=== PATIENT | female | born 1990 | race Caucasian/White ===

== ENCOUNTER 2016-11-20 10:59 | Inpatient (IN) ==
[2016-11-20] MEDS ORDERED: METHYLERGONOVINE 0.2 MG/ML INJECTION IM PRN ×2 (11:26→11:54)
[2016-11-20] MEDS ORDERED: ACETAMINOPHEN 500 MG TABLET PO PRN ×3 (11:26→16:43)
[2016-11-20] MEDS ORDERED: MAG-AL + SIM ORAL LIQUID 30ml PO PRN ×3 (11:26→16:43)
[2016-11-20] MEDS ORDERED: CALCIUM CARBONATE Chewable 500mg TABLET PO PRN ×3 (11:26→16:43)
[2016-11-20] MEDS ORDERED: CARBOPROST 250 MCG/ML INJECTION IM PRN ×2 (11:26→11:54)
[2016-11-20] MEDS ORDERED: LIDOCAINE 1% (10mg/ml) 2mL INJ PF SDV ID PRN ×2 (11:26→11:54)
[2016-11-20] MEDS: LR 1,000 ML IV PRN ×2 (11:40→12:41)
[2016-11-20] MEDS ORDERED: LR 1,000 ML IV PRN (11:54)
[2016-11-20] MEDS ORDERED: ROPIVACAINE 1% 10MG/ML INJ 200 MG, SUFentanil 50 MCG in NS 100 ML EPI PRN (12:01)
[2016-11-20] MEDS ORDERED: DiphenhydrAMINE 50 MG/ML INJECTION IVP PRN (12:01)
[2016-11-20] MEDS ORDERED: NALOXONE 0.4 MG/ML INJECTION IVP PRN (12:01)
[2016-11-20] MEDS ORDERED: ONDANSETRON 4 MG/2 ML INJECTION IVP PRN (12:01)
--- NOTE | 2016-11-20 12:01 | Anesthesia Preoperative Report ---
Anesthesia Epidural/Spinal Rec - Date and Time Date: 11/20/16 Preoperative Diagnosis: 38 wk Procedure: Labor Epidural Plan: Epidural - Vital Signs /Para: P:2 - Medictaions & Allergies Inpatient Medications: Current Medications Acetaminophen (Tylenol) 500 - 1,000 mg PO Q4H PRN PRN Reason: Pain Al Hydroxide/Mg Hydroxide (Maalox Plus) 30 ml PO Q3H PRN PRN Reason: Indigestion Calcium Carbonate (Tums) 500 - 1,000 mg PO Q2H PRN PRN Reason: Indigestion Carboprost Tromethamine (Hemabate) 250 mcg IM O PRN PRN Reason: .Downtime Lactated Ringer's (Lactated Ringers) 1,000 mls @ 1,000 mls/hr IV .Q1H PRN PRN Reason: as directed Lidocaine HCl (Xylocaine-Mpf 1% Vial) 0.2 mg ID O PRN PRN Reason: IV Start Methylergonovine Maleate (Methergine) 0.2 mg IM O PRN Misoprostol (Cytotec) 800 mcg AL ONCE PRN Allergies/Adverse Reactions: Allergies Allergy/AdvReac Type Severity Reaction Status Date / Time NKDA Allergy Uncoded 07/20/12 06:35 - Home Medications Home Medications: Home Medications Medication Instructions Recorded Confirmed Type Vits W-Ca,Fe,Fa(<1MG) 1 tab PO DAILY #0 07/20/12 History () raNITIdine HCl [Zantac] 150 mg PO BID #0 tab 12/13/15 History Tylenol 325 mg 11/10/16 History - Surgical History HEENT Surgeries: Reports: Tonsillectomy Anesthesia Reactions: None Hx Family Anesthesia Reaction: No History of Motion Sickness: No - Social History Smoking Status: Never smoker Second Hand Exposure: No Substance Use Type: does not use Alcohol Intake Frequency: does not drink Hx Chewing Tobacco Use: No - Pertinent Findings EKG Rhythm: Normal Sinus Rhythm - Physical Exam Respiratory Exam: lungs clear Cardiovascular Exam: regular rate and rhythm, no murmur - Airway Assessment Mallampati Score: II TMD: 3 Fingerbreadths Neck Extension: good Overall Assessment: no airway concerns - ASA ASA Score: 2 - Discussion Discussion: Discussed risks/options/alternatives of anesthesia and questions answered. Patient consents. Nursing pain assessment noted. Attestation Statement: Prior to the delivery of any anesthetic medication, I examined the patient, developed the plan, obtained the patient's consent and discussed the risk and benefits of the procedure with the patient/guardian.
[2016-11-20 13:45] VITALS: BMI 32.5
[2016-11-20] MEDS ORDERED: HYDROCORTISONE 2.5% CREAM 30gm RECTALLY PRN (16:43)
[2016-11-20] MEDS ORDERED: HYDROCODONE/APAP 5mg/325mg TABLET PO PRN (16:43)
[2016-11-20] MEDS ORDERED: OXYTOCIN DRIP 30 UNIT/500 ML ML IV PRN (16:43)
[2016-11-20] MEDS ORDERED: SALINE FLUSH 10ml SYRINGE IVF PRN (16:43)
[2016-11-20] MEDS ORDERED: DiphenhydrAMINE 25 MG CAPSULE PO PRN (16:43)
[2016-11-20] MEDS ORDERED: OXYTOCIN DRIP 30 UNIT/500 ML ML IV SCH (16:45)
--- NOTE | 2016-11-20 17:12 | Labor and Delivery Note ---
DATE OF DELIVERY 11/20/2016 NARRATIVE Ms. Hunt progressed very well in first stage of labor. She began to push with excellent effort at the complete and +2 presentation. She pushed for about three contractions, delivering the head in the OA presentation. There was a loose nuchal cord x 1 that was reduced. With a further push she delivered the baby in total. Baby was then bulb suctioned. Cord was doubly clamped and cut by the baby's father, Ramirez. The baby was given to the nurses for care. This is a liveborn female with Apgars of 9/9. She weighed 8 pounds 9 ounces. After a few moments the placenta delivered spontaneously intact. It had a normal configuration and normal-appearing three-vessel cord. There was a very superficial laceration in the midline that was not repaired. I performed a vaginal sweep. There were no other lacerations. Total blood loss was approximately 300 mL. At the time of this dictation mother and baby are doing well. CHAU
[2016-11-20] MEDS: IBUPROFEN 800 MG TABLET PO SCH (17:48)
--- NOTE | 2016-11-20 19:40 | Anesthesia Postoperative Note ---
- Date and Time Date: 11/20/16 Time: 19:39 - Status Patient Participated in Evaluation: Patient Participated in Person Vital Signs: Temperature 98.3 F 11/20/16 12:42 Pulse Rate 100 11/20/16 12:42 Respiratory Rate 18 11/20/16 12:42 Blood Pressure 138/76 11/20/16 12:42 Pulse Oximetry 97 11/20/16 12:42 Oxygen Delivery Method Room Air Respiratory Function: Airway Patent Cardiovascular Function: Regular Pulse EKG Rhythm: Normal Sinus Rhythm Mental Status: Alert and Oriented Hydration: Taking PO Fluids Complications During Recover: None Apparent - Follow-Up Instructions Instructions: Per Surgeon
[2016-11-20 23:21] VITALS: O2SAT 98
[2016-11-21] MEDS: IBUPROFEN 800 MG TABLET PO SCH ×2 (02:15→10:47)
[2016-11-21 08:39] VITALS: TEMP 98.2
[2016-11-21] MEDS ORDERED: DOCUSATE CALCIUM 240 MG CAPSULE PO SCH (09:00)
--- NOTE | 2016-11-21 12:48 | OB/GYN Progress Note ---
OB-Progress Note Free Text - Date Date: 11/21/16 - Progress Note Progress Note: vss af no c/o plans dc to home today if baby dismissed q&a plan f/u 5-6 [id number]
--- NOTE | 2016-11-21 13:12 | Discharge Instructions ---
Discharge Plan - Med Rec/Dispo Referrals/Follow Up: Shannon Arias MD [Physician] - 5-6 Weeks Prescriptions: No Action Tylenol 325 mg Vits W-Ca,Fe,Fa(<1MG) () 1 tab PO DAILY #0 raNITIdine HCl [Zantac] 150 mg PO BID #0 tab - Disposition 01 Discharged Home, Self-Care
[2016-11-21 19:47] VITALS: BP 123/58; PULSE 93; RESP 16
== END 2016-11-21 18:00 | disposition home or self-care (01) | DRG 775 ==
LOC: OBOBS 10:59 → MC 11:25
PROVIDERS: ADMIT Obstetrics & Gynecology; ATTEND Obstetrics & Gynecology